=== PATIENT | male | born 1970 | race African-American/Black ===

== ENCOUNTER → 2021-08-30 | Day surgery (SDC) | payer BC ==
[~2021-08-30] MED LIST: ALLOPURINOL300 MG PO; DEPAKOTE ER250 MG PO; GLUCAGON FOR INJ 1 MG VIAL ONE; LIDOCAINE HCL 2% LOCAL INJ 5 ML SDV VIAL INJ ONE; MIDAZOLAM HCL 2 MG/2 ML VIAL ONE; PROPOFOL IV EMULSION 10 MG/ML 20 ML VIAL ONE; ZOLOFT100 MG PO
[2021-08-30 10:20] VITALS: BP 112/74
== END | disposition home or self-care (01) ==
LOC: OR 07:35
PROVIDERS: ATTEND Internal Medicine Gastroenterology
DX: Z12.11 Encounter for screening for malignant neoplasm of colon (principal); K63.5 Polyp of colon; K57.30 Diverticulosis of large intestine without perforation or abscess without bleeding; K64.8 Other hemorrhoids; Z71.3 Dietary counseling and surveillance; J41.0 Simple chronic bronchitis; M10.9 Gout, unspecified; R00.1 Bradycardia, unspecified; E66.9 Obesity, unspecified; R03.0 Elevated blood-pressure reading, without diagnosis of hypertension; F31.9 Bipolar disorder, unspecified; Z01.810 Encounter for preprocedural cardiovascular examination; Z01.812 Encounter for preprocedural laboratory examination; Z20.822 Contact with and (suspected) exposure to COVID-19; Z79.899 Other long term (current) drug therapy; Z68.36 Body mass index [BMI] 36.0-36.9, adult; Z87.891 Personal history of nicotine dependence; Z80.0 Family history of malignant neoplasm of digestive organs
CPT/HCPCS: 45380; 93005; J1610; J2001; J2250; J2704; U0002